=== PATIENT | female | born 1955 | race Caucasian/White ===

== ENCOUNTER → 2023-07-29 | Outpatient (CLI) | payer MEDICARE, SELFPAY ==
--- NOTE | 2023-07-29 12:53 | BD_ITS ---
STUDY: DUAL ENERGY X-RAY ABSORPTIOMETRY / DXA REASON FOR EXAM: Female, 68 years old. 627.8Menopausal postmenopausal BONE DENSITY REASON FOR EXAM TECHNIQUE: Bone Mineral Density (BMD) measurements of lumbar spine and bilateral hips were obtained. COMPARISON: None. FINDINGS: Lumbar Spine (L1-L4): g/cm2 (0.931) / T-score (-1.1) / Z-score (1.0) Findings are suggestive of osteopenia with a low fracture risk. Left Femur Total: g/cm2 (0.684) / T-score (-2.1) / Z-score (-0.6) Left Femoral Neck: g/cm2 (0.576) / T-score (-2.5) / Z-score (-0.7) Right Femur Total: g/cm2 (0.657) / T-score (-2.3) / Z-score (-0.9) Right Femoral Neck: g/cm2 (0.651) / T-score (-1.8) / Z-score (0.0) BD/Dexa Bone Density Study IMPRESSION: The patient is considered osteopenic as outlined below according to World Joshua Organization (WHO) criteria with a high fracture risk. Reference Information: The T-score is the number of standard deviations above or below the standard which is normal for young adults at their peak bone mineral density. The World Health Organization (WHO) interprets the T-scores as follows: Above -1 Normal bone density Between -1 and -2.5 Osteopenia Equal to / or below -2.5 Osteoporosis As a practical clinical guideline, osteopenia may be graded as follows: Mild -1 through -1.5 Moderate -1.6 through -2.0 Severe -2.1 through -2.4 The Z-score is the number of standard deviations above or below age-matched controls. A Z-score of less than -1.5 would be considered abnormal. References: 1. NIH Osteoporosis and Related Bone Diseases www osteo.org 2. International Society for Clinical Densitometry www iscd.org 3. National Osteoporosis Foundation www nof.org Electronically Signed: Jay Lambert MD at 12:38 EDT ,
== END | disposition home or self-care (01) ==
PROVIDERS: PCP Family Medicine
DX: Z78.0 Asymptomatic menopausal state (principal)
CPT/HCPCS: 77080

== ENCOUNTER → 2023-09-01 | Outpatient (CLI) | payer MEDICARE, SELFPAY ==
[2023-09-01 15:18] LABS: Absolute Lymphocyte Count 3.22 X10^3/uL (0.83-4.51); Absolute Neutrophil Count 3.9 X10^3/uL (2.0-7.7); Basophil% 1.2 % (0-1); Eosinophil# 0.12 X10^3/uL; Eosinophils% 1.5 % (0-5); Hematocrit 34.6 % (37-47); Hemoglobin 11.1 g/dL (12.0-15.0); Lymphocyte # 3.22 X10^3/ul (0.83-4.51); Mean Corp Hgb Conc 32.1 g/dL (32-36); Mean Corpuscular Hgb 32.2 pg (27.0-32.0); Mean Corpuscular Volume 100.3 fL (81-99); Mean Platelet Vol. 10.1 fl (6.2-12.0); Monocyte# 0.73 X10^3/uL; Monocyte% 9.1 % (0-10); NRBC Flagged by Analyzer 0 % (0-5); Neutrophil # 3.85 X10^3/uL (2.7-7.7); Platelet Count 506 K/mm3 (150-450); RBC Distribution Width CV 13.7 % (11.6-14.6); RBC Distribution Width SD 50.2 fl (35.1-43.9); Red Blood Count 3.45 M/mm3 (4.2-5.4)
[2023-09-01 15:39] LABS: ALB/GLOB Ratio 1.3 RATIO (0.9-2.4); AST(SGOT) 18 U/L (15-37); Alanine Aminotransfer ALT/SGPT 23 U/L (13-56); Albumin, Serum 4.1 g/dL (3.2-5.0); Alkaline Phosphatase 55 U/L (45-117); Anion Gap 9 (5-15); BUN 12 mg/dL (7-18); BUN/Creat Ratio 18.9 RATIO (10-20); Calcium,Total 8.5 mg/dL (8.5-10.1); Chloride 106 mmol/L (98-107); Cholesterol 149 mg/dL (200); Creatinine, Serum 0.64 mg/dL (0.55-1.02); EST Glomerular Filtration Rate 99 mL/min (>60); Est Glom Filt Rate - Afr Amer 119 mL/min (>60); Ferritin 233 ng/mL (8-252); Globulin 3.2 g/dL (2.2-4.2); Glucose 95 mg/dL (74-106); High Density Lipoprotein 83 mg/dL; Iron 108 ug/dL (50-170); Potassium 3.7 mmol/L (3.5-5.1); Protein, Total 7.3 g/dL (6.4-8.2); Sodium Level 141 mmol/L (136-145); T4 Free Direct 1.36 ng/dL (0.76-1.46); Thyroid Stim Hormone (TSH) 0.61 uIU/mL (0.358-3.74); Triglycerides 49 mg/dL; Very Low Density Lipoprotein 10 mg/dL (5-40)
== END | disposition home or self-care (01) ==
LOC: MTLAB 13:35
PROVIDERS: PCP Nurse Practitioner Family; Referring Provider Nurse Practitioner Family; Visit Provider Nurse Practitioner Family
DX: D50.9 Iron deficiency anemia, unspecified (principal); E03.9 Hypothyroidism, unspecified; E78.5 Hyperlipidemia, unspecified; I10 Essential (primary) hypertension
CPT/HCPCS: 36415; 80053; 80061; 82728; 83540; 84439; 84443; 85025

== ENCOUNTER → 2023-09-08 | Outpatient (CLI) | payer MEDICARE, SELFPAY ==
--- NOTE | 2023-09-08 13:19 | BI_ITS ---
MAMMOGRAPHY - BILATERAL SCREENING REASON FOR EXAM: Female, 68 years old. Routine annual screening examination. PERTINENT HISTORY: Aunt with breast cancer. TECHNIQUE: Digital bilateral breast sha (3D mammographic acquisition) in the CC and MLO projections. 2-D mediolateral oblique (MLO) and craniocaudad (CC) views of both breasts were obtained. CAD: Full Field Digital Mammography with Computer Added Detection was performed. COMPARISON: Comparison is made with prior examination June 15, 2022. FINDINGS: Breast Composition: The breasts are extremely dense, which lowers the sensitivity of mammography. There are no dominant masses or suspicious calcifications. Stable small bilateral axillary lymph nodes. No other significant abnormalities are identified. There has been no significant change since the prior study. BI/SCRN MAMM (CAD)W/SHA BILAT IMPRESSION: Stable bilateral screening mammogram. Yearly follow-up mammogram recommended. (A) ASSESSMENT CATEGORY: BIRADS Category 2: Benign. A letter regarding these results will be sent to the patient by the facility within 30 days. Approximately 10% of breast cancers are not detected by mammography. A normal mammogram should not delay biopsy of a clinically suspicious abnormality. [id number] Electronically Signed: Jay Lambert MD at 12:15 EST ,
== END | disposition home or self-care (01) ==
LOC: OPBI 13:16
PROVIDERS: PCP Nurse Practitioner Family; Referring Provider Nurse Practitioner Family; Visit Provider Nurse Practitioner Family
DX: Z12.31 Encounter for screening mammogram for malignant neoplasm of breast (principal)
CPT/HCPCS: 77063; 77067

== ENCOUNTER → 2023-12-29 | Outpatient (CLI) | payer MEDICARE, SELFPAY ==
--- NOTE | 2023-12-29 14:10 | RAD_ITS ---
STUDY: X-RAY - LUMBAR SPINE REASON FOR EXAM: Female, 68 years old. Back pain and numbness in feet. TECHNIQUE: 4 view(s) of the lumbar spine were obtained. COMPARISON: None FINDINGS: Osteopenia. Reversal of the normal lordosis. No scoliosis. Normal alignment of the vertebral bodies. Diffuse lower thoracic and lumbosacral facet sclerosis. Mild anterior wedging of L3, age undetermined. Diffuse intervertebral disc space narrowing with osteophyte formation. Vascular calcification. RAD/L/S Spine Min 4 Views IMPRESSION: Osteopenia with anterior wedging of L3 and diffuse mild to moderate lumbosacral spondylosis. Electronically Signed: Braeden Laguerre MD at 15:45 EDT ,
[2023-12-29 16:24] LABS: Vitamin B12 426 pg/mL (211-911)
--- OUTSIDE RECORDS SUMMARY | 2023-12-29 21:39 | XMS RPT_ITS | CCD ---
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 Esteban Calle Primary Care Unavailjosué Garza, Dr. Peyman Mcfarland Admitting Fidencio Garza, Dr. Peyman Mcfarland Attending Fidencio Garza, Dr. Peyman Mcfarland Referring Fidencio Mathews, Dr. Esteban Calle Primary Care Unavaila don Garza, Dr. Peyman Mcfarland Admitting Fidencio Garza, Dr. Peyman Mcfarland Attending Fidencio Garza, Dr. Peyman Mcfarland Referring Esteban Tamayo Primary Care Provider ESTEBAN MATHEWS Primary Care Unavailable PEYMAN GARZA Referring Unavailable PEYMAN GARZA Attending Unavailable COOPERRIDER ISIDRO SEGAL Referring UnavailESTEBAN Krishnamurthy Primary Care Unavailable PEYMAN GARZA Attending Unavailable COOPERRIDER II, ISIDRO Fabian Attending UnavailESTEBAN Krishnamurthy Primary Care Unavailable ESTEBAN MATHEWS Primary Care Unavailable ESTEBAN MATHEWS Primary Care Unavailable COOPERRIDER II, ISIDRO Fabian Referring Unavailabl e COOPERRIDER II, ISIDRO Fabian Attending Unavailabl e PEYMAN GARZA Referring Unavailable COOPERRIDER II, ISIDRO Fabian Attending ESTEBAN [facility] Un[facility] ESTEBAN CALLE Primary [facility] Unavailable PEYMAN GARZA Referring Unavailable ESTEBAN MATHEWS Primary [facility] Unavailable [facility] Attending UnavailPEYMAN Rubio Referring Unavailable ESTEBAN MATHEWS Primary [facility] Unavailable NINA STONE Attending UnavailPEYMAN Rubio Referring Unavailable ESTEBAN MATHEWS Primary [facility] Unavailable PEYMAN GARZA Referring Unavailable PEYMAN GARZA Attending Unavailable ISIDRO STONE II Attending Unavailevangelista MATHEWS ESTEBAN CALLE [facility] Unavailable PEYMAN GARZA Referring Unavailable ESTEBAN MATHEWS Primary [facility] Unavailable PEMYAN GARZA Referring Unavailable PEYMAN GARZA Attending Unavailable Medications Current Medications Medication Drug Class(es) Dates Sig (Normalized) Sig (Original) benoxinate hydrochloride 4 mg/ml / fluorescein sodium 2.5 mg/ml ophthalmic solution (2 sources) Diagnostic Dye Start: 07-06-2022 End: 07-07-2022 fluorescein-benoxi chester 0.25-0.4 % 1 Drop (FLURESS) Completed/Discontinued Medications Medication Drug Class(es) Dates Sig (Normalized) Sig (Original) famotidine 20 mg oral tablet (13 sources) Histamine-2 Receptor Antagonist take 1 tablet by mouth twice daily famotidine (PEPCID) 20 mg tablet Take 20 mg by mouth twice daily. 0 Active Problems Active Problems Problem Classification Problem Date Documented Da te Episodic/Chronic Cataract (20 sources) Bilateral senile combined form cataracts of eyes; Translations: [Combined forms of age-related cataract, bilateral] Onset: 12-17-2014 06-06-2018 Chronic Esophageal disorders (1 source) Gastro-esophageal reflux disease without esophagitis; Translations: [Gastro-esophageal reflux disease without esophagitis] Onset: 08-13-2022 Chronic Mood disorders (1 source) Mood disorders; Translations: [Depression, unspecified] Onset: 08-13-2022 Other and unspecified benign neoplasm (1 source) Nevus of choroid; 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] Episodic Other eye disorders (15 sources) Bilateral vitreous floaters; Translations: [Other vitreous opacities, bilateral] Onset: 12-17-2014 06-16-2021 Chronic Other eye disorders (4 sources) H/O: R cataract extraction; Translations: [Cataract extraction status, right eye] Episodic Retinal detachments; defects; vascular occlusion; and retinopathy (14 sources) Degeneration of retina; Translations: [Unspecified retinal disorder] Onset: 12-17-2014 12-17-2014 Chronic Past or Other Problems Problem Classification Problem Date Documented Da te Episodic/Chronic Blindness and vision defects (20 sources) Hypermetropia; Translations: [Hypermetropia, unspecified eye] Onset: 12-17-2014 12-17-2014 Episodic Other and unspecified benign neoplasm (11 sources) Nevus of choroid of right eye; 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] Onset: 07-06-2022 Episodic Other eye disorders (11 sources) H/O: L cataract extraction; Translations: [Cataract extraction status, left eye] Onset: 08-05-2022 Episodic Residual codes; unclassified (1 source) Acquired absence of other specified parts of digestive tract; Translations: [Acquired absence of other specified parts of digestive tract] Onset: 08-13-2022 Episodic Residual codes; unclassified (1 source) Acquired absence of other organs; Translations: [Acquired absence of other organs] Onset: 08-13-2022 Episodic Residual codes; unclassified (1 source) Acquired absence of both cervix and uterus; Translations: [Acquired absence of both cervix and uterus] Onset: 07-09-2022 Episodic Results Test Name Value Interpretation Reference Range Facil ity Vital Signs Date Time Vital Sign Value Performing Clinician Faci lit 08-05-2022 14:19-0400 Diastolic blood pressure 70 mm[Hg] Peyman Garza MD Work Phone: [facility] 08-05-2022 14:19-0400 Heart rate 69 /min Peyman Garza MD Work Phone: [facility] 08-05-2022 14:19-0400 Systolic blood pressure 122 mm[Hg] Peyman Garza MD Work Phone: [facility] 07-06-2022 15:28-0400 Diastolic blood pressure 70 mm[Hg] Peyman Garza MD Work Phone: [facility] 07-06-2022 15:28-0400 Heart rate 69 /min Peyman Garza MD Work Phone: [facility] 07-06-2022 15:28-0400 Systolic blood pressure 122 mm[Hg] Peyman Garza MD Work Phone: [facility] 06-23-2022 14:12-0400 Diastolic blood pressure 70 mm[Hg] Peyman Garza MD Work Phone: [facility] 06-23-2022 14:12-0400 Heart rate 69 /min Peyman Garza MD Work Phone: [facility] 06-23-2022 14:12-0400 Systolic blood pressure 122 mm[Hg] Peyman Garza MD Work Phone: [facility] Encounters Encounter Date Encounter Type Care Provider Facility Start: 04-28-2023 End: 04-28-2023 ambulatory [facility] Facility:[facility] Start: 04-28-2023 End: 04-28-2023 Patient encounter procedure Isidro Stone OD Work Phone: Optometry Procedures Date Procedure Procedure Detail Performing Clinician Start: 11-04-2022 Computerized ophthal naresh imaging retina Isidro Stone OD Work Phone: Start: 06-23-2022 IOL BIOMETRY W/ IOL CALC OU (BOTH EYES) Peyamn Garza MD Work Phone: Start: 06-23-2022 Computerized ophthal naresh imaging retina Peyman Garza MD Work Phone: Start: 06-15-2022 Mammography Mammograph y Coordinator Start: 02-20-2021 Colonoscopy Screen Wst r Start: 01-01-2020 Mammography Screen Wst r Plan of Treatment Date Care Activity Detail Author Start: 02-20-2031 Colonoscopy COLONOSCOPY [facility] Start: 02-20-2031 COLORECTAL CANCER SCREENING COLORECTAL CANCER SCREENING [facility] Start: 06-18-2023 Influenza vaccination INFLUENZA (#1) [facility] Start: 06-15-2023 Mammography MAMMOGRAM [facility] Start: 10-18-2022 ADVANCE DIRECTIVE DISCUSSION ADVANCE DIRECTIVE DISCUSSION [facility] Start: 10-18-2022 DEPRESSION ASSESSMENT DEPRESSION ASS ESSMENT [facility] Start: 06-18-2022 Influenza vaccination INFLUENZA (#1) [facility] Start: 01-01-2022 COVID-19 VACCINE (4 - Booster for Pfizer series) COVID-19 VACCINE (4 - Booster for Pfizer series) [facility] Start: 11-07-2021 LIPID SCREEN LIPID SCREEN [facility] Start: 10-29-2021 COVID-19 VACCINE (4 - Booster for Pfizer series) COVID-19 VACCINE (4 - Booster for Pfizer series) [facility] Start: 10-29-2021 COVID-19 VACCINE (4 - Pfizer series) COVID-19 VACCINE (4 - Pfizer series) [facility] Start: 10-18-2021 ADVANCE DIRECTIVE DISCUSSION ADVANCE DIRECTIVE DISCUSSION [facility] Start: 10-18-2021 DEPRESSION ASSESSMENT DEPRESSION ASS ESSMENT [facility] Start: 12-31-2020 Mammography MAMMOGRAM [facility] Start: 2019 PNEUMOCOCCAL: 65+ (1 - PCV) PNEUMOCOCCAL: 65+ (1 - PCV) [facility] Start: 09-14-2017 DIABETES SCREEN DIABETES SCREEN [facility] Start: 02-16-2007 FECAL OCCULT BLOOD FECAL OCCULT BLOO D [facility] Start: 02-02-2004 Influenza vaccination LUNG CANCER [facility] Start: 02-02-2004 SHINGRIX VACCINE (1 of 2) SHINGRIX V ACCINE (1 of 2) [facility] Start: 1999 COLOGUARD (FIT-DNA) COLOGUARD (FIT-D NA) [facility] Start: [address] COLONOGRAPHY [facility] Start: 1999 SIGMOIDOSCOPY SIGMOIDOSCOPY [facility] Start: 1973 Urine microalbumin profile DTAP,TDAP ,TD (1 - Tdap) [facility] Start: 02-02-1972 HEPATITIS C SCREENING HEPATITIS C [facility] Start: 1966 [facility] DEPRESSION SCREENING [facility] [place] Payers Date Payer Category Payer Unknown [id number] 2018 Unknown 1955 Unknown [id number] 1955 Unknown [id number] Social History Date Type Detail Facility Start: 02-20-2016 End: 06-18-2022 Tobacco smoking status NHIS Ex-smoker [facility] End: 07-03-2015 History of tobacco use Current smoker [facility] End: 07-03-2015 History of tobacco use Cigarette Smoker [facility] Start: 02-20-2016 End: 04-28-2023 Cigarettes smoked current (pack per day) - Reported 0.8 [facility] Start: 02-20-2016 End: 06-18-2022 Tobacco use and exposure Smokeless tobacco non-user [facility] Start: 06-16-2021 End: 04-28-2023 Alcohol intake Current non-drinker of alcohol (finding) [facility] Start: 1955 Sex Assigned At Female C [facility] Start: 05-29-2022 End: 09-08-2022 Exposure to SARS-CoV-2 (event) Not sure [facility] Start: 11-04-2022 End: 04-28-2023 Tobacco use panel [facility] National Score (1-10 0), lower number is lower risk 79 [facility] Start: 01-25-2021 Gender identity Identifies as female gender (finding) [facility] Start: 01-25-2021 Sexual orientation Heterosexual (fin ding) [facility] Clinical Notes 02-20-2021 to 04-28-2023 Patient InstructionsCoIsidro whittaker II, OD - 04/28/2023 2:20 PM EDTPatient InstructionsIsidro Stone II OD - 11/04/2022 2:26 PM ESTPatient InstructionsPatient InstructionsPatient Instructions Note Date & Type Note Facility 04-28-2023 Note HNO ID: [id number] Author: Isidro Stone II, OD Service: ? Author Type: IMMUNOLOGIST Type: Progress Notes Filed: 04/28/2023 2:21 PM Note Text: Assessment and Plan H26.491 PCO (posterior capsular opacification), right (primary encounter diagnosis) Comment: No progression noted. Monitor yearly or sooner if changes noted. Z96.1 Pseudophakia of both eyes Comment: Well positioned both eyes. Monitor. 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 Retinas flat and intact with no apparent retinal tear or traction. Monitor yearly. I have confirmed and edited as necessary the relevant ophthalmic history, ROS, and the neuro exam findings as obtained by others. I have seen and examined Lexii Peralta. I have discussed the case and the management of this patient's care with the Resident/Fellow, if applicable. I also have reviewed and agree with the assessment and plan as stated above and agree with all of its relevant components. Isdiro Stone II, OD [facility] 04-28-2023 Instructions Isidro Stone II, OD - 04/28/2023 2:21 PM EDT Assessment and Plan H26.491 PCO (posterior capsular opacification), right (primary encounter diagnosis) Comment: No progression noted. Monitor yearly or sooner if changes noted. Z96.1 Pseudophakia of both eyes Comment: Well positioned both eyes. Monitor. 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 Retinas flat and intact with no apparent retinal tear or traction. Monitor yearly. I have confirmed and edited as necessary the relevant ophthalmic history, ROS, and the neuro exam findings as obtained by others. I have seen and examined Lexii Peralta. I have discussed the case and the management of this patient's care with the Resident/Fellow, if applicable. I also have reviewed and agree with the assessment and plan as stated above and agree with all of its relevant components. Isidro Stone II, OD documented in this encounter [facility] 04-28-2023 History of Present illness Narrative Assessment and Plan H26.491 PCO (posterior capsular opacification), right (primary encounter diagnosis) Comment: No progression noted. Monitor yearly or sooner if changes noted. Z96.1 Pseudophakia of both eyes Comment: Well positioned both eyes. Monitor. 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 Retinas flat and intact with no apparent retinal tear or traction. Monitor yearly. I have confirmed and edited as necessary the relevant ophthalmic history, ROS, and the neuro exam findings as obtained by others. I have seen and examined Lexii Peralta. I have discussed the case and the management of this patient's care with the Resident/Fellow, if applicable. I also have reviewed and agree with the assessment and plan as stated above and agree with all of its relevant components. Isidro Stone II, OD documented in this encounter [facility] 11-04-2022 Note HNO ID: [id number] Author: Isidro Stone II, NICOLE Service: ? Author Type: IMMUNOLOGIST Type: Progress Notes Filed: 11/04/2022 2:28 PM Note Text: Assessment and Plan Z98.41, Z96.1 Status post cataract extraction and insertion of intraocular lens of right eye (primary encounter diagnosis) Z98.42, Z96.1 Status post cataract extraction and insertion of intraocular lens of left eye Comment: Posterior chamber intraocular lenses are well positioned. Retinas stable. H26.491 PCO (posterior capsular opacification), right Comment: Mild effect on vision. Patient asymptomatic until today's testing. Monitor for progression in 6 months or sooner as needed. I have confirmed and edited as necessary the relevant ophthalmic history, ROS, and the neuro exam findings as obtained by others. I have seen and examined Lexii Peralta. I have discussed the case and the management of this patient's care with the Resident/Fellow, if applicable. I also have reviewed and agree with the assessment and plan as stated above and agree with all of its relevant components. Isidro Stone II, OD [facility] 11-04-2022 Instructions Isidro Stone II, OD - 11/04/2022 2:27 PM EST Assessment and Plan Z98.41, Z96.1 Status post cataract extraction and insertion of intraocular lens of right eye (primary encounter diagnosis) Z98.42, Z96.1 Status post cataract extraction and insertion of intraocular lens of left eye Comment: Posterior chamber intraocular lenses are well positioned. Retinas stable. H26.491 PCO (posterior capsular opacification), right Comment: Mild effect on vision. Patient asymptomatic until today's testing. Monitor for progression in 6 months or sooner as needed. I have confirmed and edited as necessary the relevant ophthalmic history, ROS, and the neuro exam findings as obtained by others. I have seen and examined Lexii Peralta. I have discussed the case and the management of this patient's care with the Resident/Fellow, if applicable. I also have reviewed and agree with the assessment and plan as stated above and agree with all of its relevant components. Isidro Stone II, OD documented in this encounter [facility] 11-04-2022 History of Present illness Narrative Assessment and Plan Z98.41, Z96.1 Status post cataract extraction and insertion of intraocular lens of right eye (primary encounter diagnosis) Z98.42, Z96.1 Status post cataract extraction and insertion of intraocular lens of left eye Comment: Posterior chamber intraocular lenses are well positioned. Retinas stable. H26.491 PCO (posterior capsular opacification), right Comment: Mild effect on vision. Patient asymptomatic until today's testing. Monitor for progression in 6 months or sooner as needed. I have confirmed and edited as necessary the relevant ophthalmic history, ROS, and the neuro exam findings as obtained by others. I have seen and examined Lexii Peralta. I have discussed the case and the management of this patient's care with the Resident/Fellow, if applicable. I also have reviewed and agree with the assessment and plan as stated above and agree with all of its relevant components. Isidro Stone II, OD documented in this encounter [facility] 09-08-2022 Note HNO ID: [id number] Author: Isidro Stone II, NICOLE Service: ? Author Type: IMMUNOLOGIST Type: Progress Notes Filed: 09/08/2022 2:12 PM Note Text: Assessment and Plan Z98.41, Z96.1 Status post cataract extraction and insertion of intraocular lens of right eye (primary encounter diagnosis) Z98.42, Z96.1 Status post cataract extraction and insertion of intraocular lens of left eye Comment: Healing well. Update glasses to maximize visual performance. Continue schedule of postoperative medications as directed. Recheck in 2 months. Instruct patient to immediately report any change in condition outside of expected and discussed symptoms. I have confirmed and edited as necessary the relevant ophthalmic history, ROS, and the neuro exam findings as obtained by others. I have seen and examined Lexii Peralta. I have discussed the case and the management of this patient's care with the Resident/Fellow, if applicable. I also have reviewed and agree with the assessment and plan as stated above and agree with all of its relevant components. Isidro Stone II, NICOLE [facility] 09-08-2022 Instructions Isidro Stone II, OD - 09/08/2022 2:12 PM EST Assessment and Plan Z98.41, Z96.1 Status post cataract extraction and insertion of intraocular lens of right eye (primary encounter diagnosis) Z98.42, Z96.1 Status post cataract extraction and insertion of intraocular lens of left eye Comment: Healing well. Update glasses to maximize visual performance. Continue schedule of postoperative medications as directed. Recheck in 2 months. Instruct patient to immediately report any change in condition outside of expected and discussed symptoms. I have confirmed and edited as necessary the relevant ophthalmic history, ROS, and the neuro exam findings as obtained by others. I have seen and examined Lexii Peralta. I have discussed the case and the management of this patient's care with the Resident/Fellow, if applicable. I also have reviewed and agree with the assessment and plan as stated above and agree with all of its relevant components. Isidro Stone II, OD documented in this encounter [facility] 09-08-2022 History of Present illness Narrative Assessment and Plan Z98.41, Z96.1 Status post cataract extraction and insertion of intraocular lens of right eye (primary encounter diagnosis) Z98.42, Z96.1 Status post cataract extraction and insertion of intraocular lens of left eye Comment: Healing well. Update glasses to maximize visual performance. Continue schedule of postoperative medications as directed. Recheck in 2 months. Instruct patient to immediately report any change in condition outside of expected and discussed symptoms. I have confirmed and edited as necessary the relevant ophthalmic history, ROS, and the neuro exam findings as obtained by others. I have seen and examined Lexiiesme Peralta. I have discussed the case and the management of this patient's care with the Resident/Fellow, if applicable. I also have reviewed and agree with the assessment and plan as stated above and agree with all of its relevant components. Isidro Stone II, OD documented in this encounter [facility] 08-20-2022 Note HNO ID: [id number] Author: Isidro Stone II, OD Service: ? Author Type: IMMUNOLOGIST Type: Progress Notes Filed: 08/20/2022 8:23 AM Note Text: Assessment and Plan Z98.41, Z96.1 Status post cataract extraction and insertion of intraocular lens of right eye (primary encounter diagnosis) Z98.42, Z96.1 Status post cataract extraction and insertion of intraocular lens of left eye Comment: Healing well both eyes. Posterior chamber intraocular lenses are well positioned and clear. Continue schedule of postoperative medications as directed. Recheck refraction at next visit before pseudophakic spectacles obtained. Recheck in 3 weeks. Instruct patient to immediately report any change in condition outside of expected and discussed symptoms. I have confirmed and edited as necessary the relevant ophthalmic history, ROS, and the neuro exam findings as obtained by others. I have seen and examined Lexii Peralta. I have discussed the case and the management of this patient's care with the Resident/Fellow, if applicable. I also have reviewed and agree with the assessment and plan as stated above and agree with all of its relevant components. Isidro Stone II, NICOLE [facility] 08-20-2022 Instructions Isidro Stone II, OD - 08/20/2022 8:23 AM EDT Assessment and Plan Z98.41, Z96.1 Status post cataract extraction and insertion of intraocular lens of right eye (primary encounter diagnosis) Z98.42, Z96.1 Status post cataract extraction and insertion of intraocular lens of left eye Comment: Healing well both eyes. Posterior chamber intraocular lenses are well positioned and clear. Continue schedule of postoperative medications as directed. Recheck refraction at next visit before pseudophakic spectacles obtained. Recheck in 3 weeks. Instruct patient to immediately report any change in condition outside of expected and discussed symptoms. I have confirmed and edited as necessary the relevant ophthalmic history, ROS, and the neuro exam findings as obtained by others. I have seen and examined Lexiiesme Peralta. I have discussed the case and the management of this patient's care with the Resident/Fellow, if applicable. I also have reviewed and agree with the assessment and plan as stated above and agree with all of its relevant components. Isidro Stone II, OD documented in this encounter [facility] 08-20-2022 History of Present illness Narrative Assessment and Plan Z98.41, Z96.1 Status post cataract extraction and insertion of intraocular lens of right eye (primary encounter diagnosis) Z98.42, Z96.1 Status post cataract extraction and insertion of intraocular lens of left eye Comment: Healing well both eyes. Posterior chamber intraocular lenses are well positioned and clear. Continue schedule of postoperative medications as directed. Recheck refraction at next visit before pseudophakic spectacles obtained. Recheck in 3 weeks. Instruct patient to immediately report any change in condition outside of expected and discussed symptoms. I have confirmed and edited as necessary the relevant ophthalmic history, ROS, and the neuro exam findings as obtained by others. I have seen and examined Lexii L Willa. I have discussed the case and the management of this patient's care with the Resident/Fellow, if applicable. I also have reviewed and agree with the assessment and plan as stated above and agree with all of its relevant components. Isidro Stone II, OD documented in this encounter [facility] [facility] 08-14-2022 Note HNO ID: [id number] Author: Nina Stone OD Service: ? Author Type: IMMUNOLOGIST Type: Progress Notes Filed: 08/14/2022 3:45 PM Note Text: ASSESSMENT/PLAN: 1. Status post cataract extraction and insertion of intraocular lens of right eye - ICD9: V45.61, V43.1, ICD10: Z98.41, Z96.1 Current Ophthalmic Meds propylene glycol (SYSTANE COMPLETE OPHTHALMIC) Use 1 Drop in both eyes up to four times a day . keTORolac (ACULAR) 0.5 % ophthalmic solution Use 1 Drop in the right eye four times daily. prednisoLONE acetate (PRED FORTE, ECONOPRED PLUS) 1 % ophthalmic suspension Use 1 Drop in the right eye four times daily. Return to Dr. Isidro Stone for continued PO and care. Nina Stone, OD I have confirmed and edited as necessary the relevant ophthalmic history, ROS, and the neuro exam findings as obtained by others. I have seen and examined this patient. [facility] 08-14-2022 Instructions Nina Stone, OD - 08/14/2022 3:42 PM EDT ASSESSMENT/PLAN: 1. Status post cataract extraction and insertion of intraocular lens of right eye - ICD9: V45.61, V43.1, ICD10: Z98.41, Z96.1 Current Ophthalmic Meds propylene glycol (SYSTANE COMPLETE OPHTHALMIC) Use 1 Drop in both eyes up to four times a day . keTORolac (ACULAR) 0.5 % ophthalmic solution Use 1 Drop in the right eye four times daily. prednisoLONE acetate (PRED FORTE, ECONOPRED PLUS) 1 % ophthalmic suspension Use 1 Drop in the right eye four times daily. Return to Dr. Isidro Stone for continued PO and care. documented in this encounter [facility] 08-14-2022 History of Present illness Narrative ASSESSMENT/PLAN: 1. Status post cataract extraction and insertion of intraocular lens of right eye - ICD9: V45.61, V43.1, ICD10: Z98.41, Z96.1 Current Ophthalmic Meds propylene glycol (SYSTANE COMPLETE OPHTHALMIC) Use 1 Drop in both eyes up to four times a day . keTORolac (ACULAR) 0.5 % ophthalmic solution Use 1 Drop in the right eye four times daily. prednisoLONE acetate (PRED FORTE, ECONOPRED PLUS) 1 % ophthalmic suspension Use 1 Drop in the right eye four times daily. Return to Dr. Isidro Stone for continued PO and care. Nina Stone, OD I have confirmed and edited as necessary the relevant ophthalmic history, ROS, and the neuro exam findings as obtained by others. I have seen and examined this patient. documented in this encounter [facility] 08-13-2022 Note Post Operative Note: Post-Procedure Diagnosis: 1. Combined Form Age Related Cataract Right Eye Procedure: 1. Cataract Extraction with Intraocular lens Implant Right Eye Surgeon: Peyman Garza MD Resident/Fellow/Other Plastic Surgery Assistant: None Estimated Blood Loss (mL): none Specimen: no Findings: 1. Combined Form Age Related Cataract Right Eye Operative Report Dictated: Dictation: not applicable - note contains Operative Report Operative Report: The patient was correctly identified and the patient's operative eye was marked with a marking pen and verified with the patient in the pre-operative area. The operative eye was dilated in the preoperative area. The patient was then taken to the operating room where timeout was performed before starting the procedure. Combined anesthesia with intravenous sedation and topical tetracaine eyedrops were instilled into the right eye. The operative eye was prepped and draped in the standard sterile ophthalmic fashion in preparation for ophthalmic surgery. A Joy wire speculum was then inserted between the eyelids of the right eye and the operating microscope was placed over the right eye. A paracentesis incision was made approximately 30 away from the planned surgical incision site with the help of MVR blade. 1% lidocaine MPF with Phenylephrine 1.5% PF was injected into the anterior chamber through the paracentesis incision. A near limbal clear corneal incision was fashioned in the temporal quadrant just outside the vascular arcade and Viscoat was injected into anterior chamber to firm the eye. A bent needle cystotome was used and Utrata forceps were utilized to create a continuous curvilinear capsulorrhexis. BSS was injected beneath the anterior capsule to hydrodissect the nucleus from adjacent cortex and capsule. The residual cortex was then aspirated with irrigation/aspiration handpiece. The posterior capsule was then polished with the help of soft irrigation-aspiration tip. Provisc viscoelastic was then injected into the eye to reform the anterior chamber and to open the capsular bag. The intraocular lens implant was taken from its sterile wrapping, inspected under the surgical microscope and found to be in good condition. The intraocular lens implant 23.5D was injected into the capsule bag. The Provisc was then aspirated from the anterior chamber and from behind the intraocular lens implant. The anterior chamber was inflated with the help of BSS to moderate tension. And the edges of the surgical incision were then hydrated with the help of BSS. Vigamox was then injected into the anterior chamber and into the capsule bag through the paracentesis incision. The surgical wound was then inspected and found to be watertight. The wire speculum and drapes were then removed. Pred Forte eyedrops, Acular eyedrops and Betadine 5% sterile ophthalmic solution were instilled in the conjunctival sac. The patient tolerated the procedure well and was taken to recovery room in stable condition. Attestation: Note Completion: Attending AttestationI performed the procedure without a resident Electronic Signatures: Peyman Garza) (Signed 13-Aug-2022 14:26) Authored: Post Operative Note, Note Completion Last Updated: 13-Aug-2022 14:26 by Peyman Garza) [facility] 08-13-2022 Note History & Physical R eviewed: I have reviewed the History and Physical dated: 05-Aug-2022 History and Physical reviewed and relevant findings noted. Patient examined to review pertinent physical findings.: No significant changes Home Medications Reviewed: no changes noted Allergies Reviewed: no changes noted ERAS (Enhanced Recovery After Surgery): ERAS Patient: no Consent: COVID-19 Consent: COVID-19 Risk ConsentSurgeon has reviewed pham risks related to the risk of cara COVID-19 and if they contract COVID-19 what the risks are. Electronic Signatures: Peyman Garza) (Signed 13-Aug-2022 12:24) Authored: History & Physical Reviewed, ERAS, Consent, Note Completion Last Updated: 13-Aug-2022 12:24 by Peyman Garza) [facility] 08-05-2022 Note HNO ID: [id number] Author: Peyman Garza MD Service: ? Author Type: Physician Type: Progress Notes Filed: 08/05/2022 2:31 PM Note Text: ASSESSMENT/PLAN: 1. Combined forms of age-related cataract of right eye - ICD9: 366.19, ICD10: H25.811 (primary diagnosis) Cataract Presurgical Documentation Cataract: Right eye (OD) Current Visual Acuity Right Eye Distance CC 20/50 Left Eye Distance SC 20/25 Visual Function: Lexii Peralta states that the decline in vision from the cataract impedes her abilities as listed in the HPI, as well as other activities of daily living. Lexii Peralta has confirmed that she is no longer able to function adequately on a day-to-day basis because of her current visual condition. Further, it is my medical opinion that the cataract is the primary cause, or at least a significantly contributory cause of her visual dysfunction. With uncomplicated cataract surgery and lens implantation, it is my expectation that her visual function and quality of life will improve, significantly. The risks, benefits, alternatives, personnel and complications of cataract surgery with lens implantation were discussed with Lexii Peralta in detail. she appeared to understand and asked that I proceed with plans for surgery. PHYSICAL EXAM: Vital Signs: Blood pressure 122/70, pulse 69. Respiratory: Normal breath sounds, no wheezing. CARD: Normal heart sounds 1 AND 2, normal sinus rhythm. Patient wishes to have traditional cataract surgery with basic Intraocular lens - Right eye on 08/13/2022 at [facility]. Patient wishes to have cataract surgery with the option stated above. Patient understands that an intraocular lens implant does not necessarily replace the need for glasses. Patient understands that it is impossible for the surgeon to inform him/her of every possible complication that may occur. The surgeon has answered all of the patient's questions. Patient understands that if he/she has a mature or dense cataract, pseudoexfoliation cataract, or history of use of Flomax, he/she may require the use of Maluyugin Ring and/or Vision Blue during surgery. Patient understands the risks, benefits, and alternatives to surgery. Continue: Current Ophthalmic Meds fluorometholone (FML LIQUID FILM) 0.1 % ophthalmic suspension Use 1 Drop in the right eye three times daily. Systane Complete Artificial Tears - Use 1 Drop into both eyes three times a day. 2. 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 Status post cataract extraction and insertion of intraocular lens of left eye - ICD9: V45.61, V43.1, ICD10: Z98.42, Z96.1 Intraocular lens in good position, Left eye Continue: Current Ophthalmic Meds keTORolac (ACULAR) 0.5 % ophthalmic solution Use 1 Drop in the left eye three times daily. prednisoLONE acetate (PRED FORTE, ECONOPRED PLUS) 1 % ophthalmic suspension Use 1 Drop in the left eye three times daily. Systane Complete Artificial Tears - Use 1 Drop into both eyes three times a day. I have confirmed and edited as necessary the relevant ophthalmic history, review of systems, surgical history, and ophthalmological examination findings as obtained by the ophthalmic technical staff. I have seen and examined Lexii Peralta. I have discussed the examination findings, diagnosis, and treatment options with Lexii Peralta and/or her family. I have also reviewed and agree with the assessment and plan as stated above and agree with all its relevant components. I gave the patient the opportunity to ask questions about the findings, diagnosis, and treatment options. Peyman Garza MD [facility] 08-05-2022 Instructions Peyman Garza MD - 08/05/2022 2:28 PM EDT Continue: Current Ophthalmic Meds propylene glycol (SYSTANE COMPLETE OPHTHALMIC) fluorometholone (FML LIQUID FILM) 0.1 % ophthalmic suspension Use 1 Drop in the right eye three times daily. keTORolac (ACULAR) 0.5 % ophthalmic solution Use 1 Drop in the left eye three times daily. prednisoLONE acetate (PRED FORTE, ECONOPRED PLUS) 1 % ophthalmic suspension Use 1 Drop in the left eye three times daily. Systane Complete Artificial Tears - Use 1 Drop into both eyes three times a day. If you have any questions please contact our office at [phone]. After office hours or on the weekend, please call Dr. Garza on his cell phone at [phone]. documented in this encounter [facility] 08-05-2022 History of Present illness Narrative ASSESSMENT/PLAN: 1. Combined forms of age-related cataract of right eye - ICD9: 366.19, ICD10: H25.811 (primary diagnosis) Cataract Presurgical Documentation Cataract: Right eye (OD) Current Visual Acuity Right Eye Distance CC 20/50 Left Eye Distance SC 20/25 Visual Function: Lexii Peralta states that the decline in vision from the cataract impedes her abilities as listed in the HPI, as well as other activities of daily living. Lexii Peralta has confirmed that she is no longer able to function adequately on a day-to-day basis because of her current visual condition. Further, it is my medical opinion that the cataract is the primary cause, or at least a significantly contributory cause of her visual dysfunction. With uncomplicated cataract surgery and lens implantation, it is my expectation that her visual function and quality of life will improve, significantly. The risks, benefits, alternatives, personnel and complications of cataract surgery with lens implantation were discussed with Lexii Peralta in detail. she appeared to understand and asked that I proceed with plans for surgery. PHYSICAL EXAM: Vital Signs: Blood pressure 122/70, pulse 69. Respiratory: Normal breath sounds, no wheezing. CARD: Normal heart sounds 1 & 2, normal sinus rhythm. Patient wishes to have traditional cataract surgery with basic Intraocular lens - Right eye on 08/13/2022 at [facility]. Patient wishes to have cataract surgery with the option stated above. Patient understands that an intraocular lens implant does not necessarily replace the need for glasses. Patient understands that it is impossible for the surgeon to inform him/her of every possible complication that may occur. The surgeon has answered all of the patient's questions. Patient understands that if he/she has a mature or dense cataract, pseudoexfoliation cataract, or history of use of Flomax, he/she may require the use of Maluyugin Ring and/or Vision Blue during surgery. Patient understands the risks, benefits, and alternatives to surgery. Continue: Current Ophthalmic Meds fluorometholone (FML LIQUID FILM) 0.1 % ophthalmic suspension Use 1 Drop in the right eye three times daily. Systane Complete Artificial Tears - Use 1 Drop into both eyes three times a day. 2. 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 Status post cataract extraction and insertion of intraocular lens of left eye - ICD9: V45.61, V43.1, ICD10: Z98.42, Z96.1 Intraocular lens in good position, Left eye Continue: Current Ophthalmic Meds keTORolac (ACULAR) 0.5 % ophthalmic solution Use 1 Drop in the left eye three times daily. prednisoLONE acetate (PRED FORTE, ECONOPRED PLUS) 1 % ophthalmic suspension Use 1 Drop in the left eye three times daily. Systane Complete Artificial Tears - Use 1 Drop into both eyes three times a day. I have confirmed and edited as necessary the relevant ophthalmic history, review of systems, surgical history, and ophthalmological examination findings as obtained by the ophthalmic technical staff. I have seen and examined Lexii Peralta. I have discussed the examination findings, diagnosis, and treatment options with Lexii Prealta and/or her family. I have also reviewed and agree with the assessment and plan as stated above and agree with all its relevant components. I gave the patient the opportunity to ask questions about the findings, diagnosis, and treatment options. Peyman Garza MD documented in this encounter [facility] 07-16-2022 Note HNO ID: [id number] Author: Isidro Stone II, OD Service: ? Author Type: IMMUNOLOGIST Type: Progress Notes Filed: 07/16/2022 12:23 PM Note Text: Assessment and Plan Z98.42, Z96.1 Status post cataract extraction and insertion of intraocular lens of left eye (primary encounter diagnosis) Comment: Healing well. Posterior chamber intraocular lens is well positioned and clear. Continue schedule of postoperative medications as directed. Recheck refraction at next visit before pseudophakic spectacles obtained. Right eye scheduled for cataract removal in 1 month. Instruct patient to immediately report any change in condition outside of expected and discussed symptoms. I have confirmed and edited as necessary the relevant ophthalmic history, ROS, and the neuro exam findings as obtained by others. I have seen and examined Lexii Peralta. I have discussed the case and the management of this patient's care with the Resident/Fellow, if applicable. I also have reviewed and agree with the assessment and plan as stated above and agree with all of its relevant components. Isidro Stone II, OD [facility] 07-10-2022 Note HNO ID: [id number] Author: Nina Stone OD Service: ? Author Type: IMMUNOLOGIST Type: Progress Notes Filed: 07/10/2022 3:16 PM Note Text: ASSESSMENT/PLAN: 1. Status post cataract extraction and insertion of intraocular lens of left eye - ICD9: V45.61, V43.1, ICD10: Z98.42, Z96.1 (primary diagnosis) Current Ophthalmic Meds keTORolac (ACULAR) 0.5 % ophthalmic solution Use 1 Drop in the left eye four times daily for 7 days then 3 times daily until 08/13/2022 prednisoLONE acetate (PRED FORTE, ECONOPRED PLUS) 1 % ophthalmic suspension Use 1 Drop in the left eye four times daily for 7 days then 3 times daily until 08/13/2022 Systane Complete 1 drop in both eyes three times daily 2. Combined form of age-related cataract, right eye - ICD9: 366.19, ICD10: H25.811 Return for consents around August 06. Return to Dr. Isidro Stone for one week post op Nina Stone, OD I have confirmed and edited as necessary the relevant ophthalmic history, ROS, and the neuro exam findings as obtained by others. [facility] 07-10-2022 Instructions Nina Stone, OD - 07/10/2022 3:13 PM EDT ASSESSMENT/PLAN: 1. Status post cataract extraction and insertion of intraocular lens of left eye - ICD9: V45.61, V43.1, ICD10: Z98.42, Z96.1 (primary diagnosis) Current Ophthalmic Meds keTORolac (ACULAR) 0.5 % ophthalmic solution Use 1 Drop in the left eye four times daily for 7 days then 3 times daily until 08/13/2022 prednisoLONE acetate (PRED FORTE, ECONOPRED PLUS) 1 % ophthalmic suspension Use 1 Drop in the left eye four times daily for 7 days then 3 times daily until 08/13/2022 Systane Complete 1 drop in both eyes three times daily 2. Combined form of age-related cataract, right eye - ICD9: 366.19, ICD10: H25.811 Return for consents around August 06. Return to Dr. Isidro Stone for one week post op documented in this encounter [facility] 07-10-2022 History of Present illness Narrative ASSESSMENT/PLAN: 1. Status post cataract extraction and insertion of intraocular lens of left eye - ICD9: V45.61, V43.1, ICD10: Z98.42, Z96.1 (primary diagnosis) Current Ophthalmic Meds keTORolac (ACULAR) 0.5 % ophthalmic solution Use 1 Drop in the left eye four times daily for 7 days then 3 times daily until 08/13/2022 prednisoLONE acetate (PRED FORTE, ECONOPRED PLUS) 1 % ophthalmic suspension Use 1 Drop in the left eye four times daily for 7 days then 3 times daily until 08/13/2022 Systane Complete 1 drop in both eyes three times daily 2. Combined form of age-related cataract, right eye - ICD9: 366.19, ICD10: H25.811 Return for consents around August 06. Return to Dr. Isidro Stone for one week post op Nina Stone, NICOLE I have confirmed and edited as necessary the relevant ophthalmic history, ROS, and the neuro exam findings as obtained by others. documented in this encounter [facility] 07-09-2022 Note Post Operative Note: Post-Procedure Diagnosis: 1. Combined Form Age Related Cataract Left Eye Procedure: 1. Cataract Extraction with Intraocular Lens Implant Left Eye Surgeon: Peyman Garza MD Resident/Fellow/Other Plastic Surgery Assistant: None Estimated Blood Loss (mL): none Specimen: no Findings: 1. Combined Form Age Related Cataract Left Eye Operative Report Dictated: Dictation: not applicable - note contains Operative Report Operative Report: The patient was correctly identified in the preop area and the operative eye was marked with a marking pen. The operative eye was dilated in the preoperative area. The patient was then taken to the operating room where timeout was performed before starting the procedure. Combined anesthesia with intravenous sedation and topical tetracaine eyedrops were given the left eye. The operative eye was prepped and draped in the standard sterile ophthalmic fashion in preparation for ophthalmic surgery. A Joy wire speculum was then inserted between the eyelids of the left eye and the operating microscope was placed over the left eye. A paracentesis incision was made approximately 30 away from the planned surgical incision site with the help of MVR blade. 1% lidocaine MPF with Phenylephrine 1.5% PF was injected into the anterior chamber through the paracentesis incision. A near limbal clear corneal incision was fashioned in the temporal quadrant just outside the vascular arcade and Viscoat was injected into anterior chamber to firm the eye. A bent needle cystotome was used and Utrata forceps were utilized to create a continuous curvilinear capsulorrhexis. BSS was injected beneath the anterior capsule to hydrodissect the nucleus from adjacent cortex and capsule. The residual cortex were then aspirated with irrigation aspiration handpiece. The posterior capsule was then polished with the help of soft irrigation-aspiration tip. Provisc viscoelastic was then injected into the eye to reform the anterior chamber and to open the capsular bag. The intraocular lens implant was taken from its sterile wrapping, inspected under the surgical microscope and found to be in good condition. The intraocular lens implant 22.5D was injected into the capsule bag. The Provisc was then aspirated from the anterior chamber and from behind the intraocular lens implant. The anterior chamber was inflated with the help of BSS to moderate tension. The edges of the surgical incision were then hydrated with the help of BSS. Vigamox was then injected into the anterior chamber and into the capsule bag through the paracentesis incision. The surgical wound was then inspected and found to be watertight. The wire speculum and drapes were then removed. Pred Forte eyedrops, Acular eyedrops and Betadine 5% sterile ophthalmic solution were instilled in the conjunctival sac. The patient tolerated the procedure well and was taken to recovery room in stable condition. Attestation: Note Completion: Attending AttestationI performed the procedure without a resident Electronic Signatures: Peyman Garza) (Signed 09-Jul-2022 09:23) Authored: Post Operative Note, Note Completion Last Updated: 09-Jul-2022 09:23 by Peyman Garza) [facility] 07-09-2022 Note History & Physical R eviewed: I have reviewed the History and Physical dated: 06-Jul-2022 History and Physical reviewed and relevant findings noted. Patient examined to review pertinent physical findings.: No significant changes Home Medications Reviewed: no changes noted Allergies Reviewed: no changes noted ERAS (Enhanced Recovery After Surgery): ERAS Patient: no Consent: COVID-19 Consent: COVID-19 Risk ConsentSurgeon has reviewed pham risks related to the risk of cara COVID-19 and if they contract COVID-19 what the risks are. Electronic Signatures: Peyman Garza) (Signed 09-Jul-2022 07:50) Authored: History & Physical Reviewed, ERAS, Consent, Note Completion Last Updated: 09-Jul-2022 07:50 by Peyman Garza) [facility] 07-06-2022 Note HNO ID: [id number] Author: Peyman Garza MD Service: ? Author Type: Physician Type: Progress Notes Filed: 07/06/2022 3:41 PM Note Text: ASSESSMENT/PLAN: 1. Combined forms of age-related cataract of left eye - ICD9: 366.19, ICD10: H25.812 (primary diagnosis) Cataract Presurgical Documentation Cataract: Left eye (OS) Current Visual Acuity Right Eye Distance CC 20/50 Left Eye Distance CC 20/60 Visual Function: Lexii Peralta states that the decline in vision from the cataract impedes her abilities as listed in the HPI, as well as other activities of daily living. Lexii Peralta has confirmed that she is no longer able to function adequately on a day-to-day basis because of her current visual condition. Further, it is my medical opinion that the cataract is the primary cause, or at least a significantly contributory cause of her visual dysfunction. With uncomplicated cataract surgery and lens implantation, it is my expectation that her visual function and quality of life will improve, significantly. The risks, benefits, alternatives, personnel and complications of cataract surgery with lens implantation were discussed with Lexii Peralta in detail. she appeared to understand and asked that I proceed with plans for surgery. PHYSICAL EXAM: Vital Signs: Blood pressure 122/70, pulse 69. Respiratory: Normal breath sounds, no wheezing. CARD: Normal heart sounds 1 AND 2, normal sinus rhythm. Patient wishes to have traditional cataract surgery with basic Intraocular lens Left eye on 07/09/2022 at [facility]. Patient wishes to have cataract surgery with the option stated above. Patient understands that an intraocular lens implant does not necessarily replace the need for glasses. Patient understands that it is impossible for the surgeon to inform him/her of every possible complication that may occur. The surgeon has answered all of the patient's questions. Patient understands that if he/she has a mature or dense cataract, pseudoexfoliation cataract, or history of use of Flomax, he/she may require the use of Maluyugin Ring and/or Vision Blue during surgery. Patient understands the risks, benefits, and alternatives to surgery. Continue: Current Ophthalmic Meds fluorometholone (FML LIQUID FILM) 0.1 % ophthalmic suspension Use 1 Drop in both eyes three times daily. Systane Complete Artificial Tears - Use 1 Drop into both eyes three times a day. 2. Combined forms of age-related cataract of right eye - ICD9: 366.19, ICD10: H25.811 Plan cataract surgery in Right eye once Left eye is stable Continue: Current Ophthalmic Meds fluorometholone (FML LIQUID FILM) 0.1 % ophthalmic suspension Use 1 Drop in both eyes three times daily. Systane Complete Artificial Tears - Use 1 Drop into both eyes three times a day. 3. 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 I have seen and examined Lexii Peralta. I have discussed the examination findings, diagnosis, and treatment options with Lexii Peralta and/or her family. I have also reviewed and agree with the assessment and plan as stated above and agree with all its relevant components. I gave the patient the opportunity to ask questions about the findings, diagnosis, and treatment options. Peyman Garza MD [facility] 07-06-2022 Instructions Peyman Garza MD - 07/06/2022 3:34 PM EDT Continue: Current Ophthalmic Meds fluorometholone (FML LIQUID FILM) 0.1 % ophthalmic suspension Use 1 Drop in both eyes three times daily. Systane Complete Artificial Tears - Use 1 Drop into both eyes three times a day. If you have any questions please contact our office at [phone]. After office hours or on the weekend, please call Dr. Gazra on his cell phone at [phone]. documented in this encounter [facility] 07-06-2022 History of Present illness Narrative ASSESSMENT/PLAN: 1. Combined forms of age-related cataract of left eye - ICD9: 366.19, ICD10: H25.812 (primary diagnosis) Cataract Presurgical Documentation Cataract: Left eye (OS) Current Visual Acuity Right Eye Distance CC 20/50 Left Eye Distance CC 20/60 Visual Function: Lexii Peralta states that the decline in vision from the cataract impedes her abilities as listed in the HPI, as well as other activities of daily living. Lexii Peralta has confirmed that she is no longer able to function adequately on a day-to-day basis because of her current visual condition. Further, it is my medical opinion that the cataract is the primary cause, or at least a significantly contributory cause of her visual dysfunction. With uncomplicated cataract surgery and lens implantation, it is my expectation that her visual function and quality of life will improve, significantly. The risks, benefits, alternatives, personnel and complications of cataract surgery with lens implantation were discussed with Lexii Peralta in detail. she appeared to understand and asked that I proceed with plans for surgery. PHYSICAL EXAM: Vital Signs: Blood pressure 122/70, pulse 69. Respiratory: Normal breath sounds, no wheezing. CARD: Normal heart sounds 1 & 2, normal sinus rhythm. Patient wishes to have traditional cataract surgery with basic Intraocular lens Left eye on 07/09/2022 at [facility]. Patient wishes to have cataract surgery with the option stated above. Patient understands that an intraocular lens implant does not necessarily replace the need for glasses. Patient understands that it is impossible for the surgeon to inform him/her of every possible complication that may occur. The surgeon has answered all of the patient's questions. Patient understands that if he/she has a mature or dense cataract, pseudoexfoliation cataract, or history of use of Flomax, he/she may require the use of Maluyugin Ring and/or Vision Blue during surgery. Patient understands the risks, benefits, and alternatives to surgery. Continue: Current Ophthalmic Meds fluorometholone (FML LIQUID FILM) 0.1 % ophthalmic suspension Use 1 Drop in both eyes three times daily. Systane Complete Artificial Tears - Use 1 Drop into both eyes three times a day. 2. Combined forms of age-related cataract of right eye - ICD9: 366.19, ICD10: H25.811 Plan cataract surgery in Right eye once Left eye is stable Continue: Current Ophthalmic Meds fluorometholone (FML LIQUID FILM) 0.1 % ophthalmic suspension Use 1 Drop in both eyes three times daily. Systane Complete Artificial Tears - Use 1 Drop into both eyes three times a day. 3. 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 I have seen and examined Lexii Peralta. I have discussed the examination findings, diagnosis, and treatment options with Lexii Peralta and/or her family. I have also reviewed and agree with the assessment and plan as stated above and agree with all its relevant components. I gave the patient the opportunity to ask questions about the findings, diagnosis, and treatment options. Peyman Garza MD documented in this encounter [facility] documented as of this encounter (statuses as of 07/10/2022) [facility]09-19-2022 History of Past illness Narrative* Problem Noted Date Resolved Date Combined form of age-related cataract, left eye 07/06/2022 07/10/2022 Change in bowel habits 02/20/2021 Epigastric pain 02/20/2021 02/20/2021 Diarrhea 02/20/2021 02/20/2021 Ovarian cyst 01/02/2013 04/06/2013 documented as of this encounter (statuses as of 08/01/2022) [facility] History of Past illness Narrative* Problem Noted Date Resolved Date Combined form of age-related cataract, left eye 07/06/2022 07/10/2022 Change in bowel habits 02/20/2021 1 Epigastric pain 02/20/2021 02/20/2021 Diarrhea 02/20/2021 02/20/2021 Ovarian cyst 01/02/2013 04/06/2013 documented as of this encounter (statuses as of 08/05/2022) [facility] History of Past illness Narrative* Problem Noted Date Resolved Date Combined form of age-related cataract, left eye 07/06/2022 07/10/2022 Change in bowel habits 02/20/2021 1 Epigastric pain 02/20/2021 02/20/2021 Diarrhea 02/20/2021 02/20/2021 Ovarian cyst 01/02/2013 04/06/2013 documented as of this encounter (statuses as of 08/14/2022) [facility] History of Past illness Narrative* Problem Noted Date Resolved Date Combined form of age-related cataract, left eye 07/06/2022 07/10/2022 Change in bowel habits 02/20/2021 1 Epigastric pain 02/20/2021 02/20/2021 Diarrhea 02/20/2021 02/20/2021 Ovarian cyst 01/02/2013 04/06/2013 documented as of this encounter (statuses as of 08/20/2022) [facility] History of Past illness Narrative* Problem Noted Date Resolved Date Combined form of age-related cataract, left eye 07/06/2022 07/10/2022 Change in bowel habits 02/20/2021 1 Epigastric pain 02/20/2021 02/20/2021 Diarrhea 02/20/2021 02/20/2021 Ovarian cyst 01/02/2013 04/06/2013 documented as of this encounter (statuses as of 09/08/2022) [address]19-2022 History of Past illness Narrative* Problem Noted Date Resolved Date Combined form of age-related cataract, left eye 07/06/2022 07/10/2022 Change in bowel habits 02/20/2021 1 Epigastric pain 02/20/2021 02/20/2021 Diarrhea 02/20/2021 02/20/2021 Ovarian cyst 01/02/2013 04/06/2013 documented as of this encounter (statuses as of 11/04/2022) [facility] History of Past illness Narrative* Problem Noted Date Diagnosed Date Resolved Date Combined form of age-related cataract, left eye 07/06/2022 07/10/2022 Change in bowel habits 02/20/202102/20 Epigastric pain 02/20/2021 02/20/2021 Diarrhea 02/20/2021 02/20/2021 Ovarian cyst 01/02/2013 04/06/2013 documented as of this encounter (statuses as of 04/29/2023) [facility]09[facility]06[facility]22 NoteHNO ID: [id number] Author: Peyman Garza MD Service: ? Author Type: Physician Type: Progress Notes Filed: 06/23/2022 3:28 PM Note Text: ASSESSMENT/PLAN: 1. Combined form of age-related cataract, left eye - ICD9: 366.19, ICD10: H25.812 (primary diagnosis) 2. Combined form of age-related cataract, right eye - ICD9: 366.19, ICD10: H25.811 Blood pressure 122/70, pulse 69. Cataract Presurgical Documentation Cataract: Both eyes (OU) Current Visual Acuity Right Eye Distance CC 20/50 Left Eye Distance CC 20/[address] Isidro Stone's examination and notes today Visual Function: Lexii Peralta states that the decline in vision from the cataract impedes her abilities as listed in the HPI, as well as other activities of daily living. Lexii Peralta has confirmed that she is no longer able to function adequately on a day-to-day basis because of her current visual condition. Further, it is my medical opinion that the cataract is the primary cause, or at least a significantly contributory cause of her visual dysfunction. With uncomplicated cataract surgery and lens implantation, it is my expectation that her visual function and quality of life will improve, significantly. The risks, benefits, alternatives, personnel and complications of cataract surgery with lens implantation were discussed with Lexii Peralta in detail. she appeared to understand and asked that I proceed with plans for surgery. Patient wishes to have traditional cataract surgery with basic Intraocular lens left eye 07/09/2022. Patient wishes to have cataract surgery with the option stated above. Patient understands that an intraocular lens implant does not necessarily replace the need for glasses. Patient understands that it is impossible for the surgeon to inform him/her of every possible complication that may occur. The surgeon has answered all of the patient's questions. Patient understands that if he/she has a mature or dense cataract, pseudoexfoliation cataract, or history of use of Flomax, he/she may require the use of Maluyugin Ring and/or Vision Blue during surgery. Patient understands the risks, benefits, and alternatives to surgery.le Current Ophthalmic Meds fluorometholone (FML LIQUID FILM) 0.1 % ophthalmic suspension Use 1 Drop in both eyes three times daily. Systane Complete Artificial Tears - Use 1 Drop into both eyes three times a day. 3. 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 I have seen and examined Lexii Peralta. I have discussed the examination findings, diagnosis, and treatment options with Lexii Peralta and/or her family. I have also reviewed and agree with the assessment and plan as stated above and agree with all its relevant components. I gave the patient the opportunity to ask questions about the findings, diagnosis, and treatment options.[facility] History of Present illness Narrative* Peyman Garza MD - 06/23/2022 2:40 PM EDT ASSESSMENT/PLAN: 1. Combined form of age-related cataract, left eye - ICD9: 366.19, ICD10: H25.812 (primary diagnosis) 2. Combined form of age-related cataract, right eye - ICD9: 366.19, ICD10: H25.811 Blood pressure 122/70, pulse 69. Cataract Presurgical Documentation Cataract: Both eyes (OU) Current Visual Acuity Right Eye Distance CC 20/50 Left Eye Distance CC 20/[address] Isidro Stone's examination and notes today Visual Function: Lexii Peralta states that the decline in vision from the cataract impedes her abilities as listed in the HPI, as well as other activities of daily living. Lexii Peralta has confirmed that she is no longer able to function adequately on a day-to-day basis because of her current visual condition. Further, it is my medical opinion that the cataract is the primary cause, or at least a significantly contributory cause of her visual dysfunction. With uncomplicated cataract surgery and lens implantation, it is my expectation that her visual function and quality of life will improve, significantly. The risks, benefits, alternatives, personnel and complications of cataract surgery with lens implantation were discussed with Lexii Peralta in detail. she appeared to understand and asked that I proceed with plans for surgery. Patient wishes to have traditional cataract surgery with basic Intraocular lens left eye 07/09/2022. Patient wishes to have cataract surgery with the option stated above. Patient understands that an intraocular lens implant does not necessarily replace the need for glasses. Patient understands thatit is impossible for the surgeon to inform him/her of every possible complication that may occur. The surgeon has answered all of the patient's questions. Patient understands that if he/she has a mature or dense cataract, pseudoexfoliation cataract, or history of use of Flomax, he/she may require the use of Maluyugin Ring and/or Vision Blue during surgery. Patient understands the risks, benefits, and alternatives to surgery.le Current Ophthalmic Meds fluorometholone (FML LIQUID FILM) 0.1 % ophthalmic suspension Use 1 Drop in both eyes three times daily. Systane Complete Artificial Tears - Use 1 Drop into both eyes three times a day. 3. 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 I have discussed the examination findings, diagnosis, andtreatment options with Lexii Peralta and/or her family. I have also reviewed and agree with the assessment and plan as stated above and agree with all its relevant components. I gave the patient the opportunity to ask questions about the findings, diagnosis, and treatment options. [facility] Inst[facility]* Patient Instructions* Peyman Garza MD - 06/23/2022 2:40 PM EDT Current Ophthalmic Meds fluorometholone (FML LIQUID FILM) 0.1 % ophthalmic suspension Use 1 Drop in both eyes three times daily. Systane Complete Artificial Tears - Use 1 Drop into both eyes three times a day. Surgery scheduled for 07/09/2022 left eye at [facility] If you have any questions please contact our office at [phone]. After office hours or on the weekend, please call Dr. Garza on his cell phone at [phone]. [facility] NoteHNO ID: [id number] Author: Isidro Stone II, OD Service: ? Author Type: IMMUNOLOGIST Type: Progress Notes Filed: 06/18/2022 10:44 AM Note Text: Assessment and Plan H25.813 Combined form of senile cataract of both eyes (primary encounter diagnosis) Comment: Cataracts interfering with activities of daily living. Even daytime driving is becoming more difficult. Medically necessary surgery recommended to improve functional vision. Risks involved with cataract surgery discussed. Appointment made for consult with Dr. Garza. 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 Retinas flat and intact with no apparent retinal tear or traction. Monitor yearly. 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 Monitor. H52.03 Hyperopia of both eyes H52.223 Regular astigmatism of both eyes H52.4 Presbyopia - Both Eyes Comment: Small shift in glasses power. Patient sees little improvement with new power. I have confirmed and edited as necessary the relevant ophthalmic history, ROS, and the neuro exam findings as obtained by others. I have seen and examined Lexii Peralta. I have discussed the case and the management of this patient's care with the Resident/Fellow, if applicable. I also have reviewed and agree with the assessment and plan as stated above and agree with all of its relevant components. Isidro Stone II, [facility] Inst[facility]* Patient Instructions* Isidro Stone II, OD - 06/18/2022 10:43 AM EDT Assessment and Plan H25.813 Combined form of senile cataract of both eyes (primary encounter diagnosis) Comment: Cataracts interfering with activities of daily living. Even daytime driving is becoming more difficult. Medically necessary surgery recommended to improve functional vision. Risks involved with cataract surgery discussed. Appointment made for consult with Dr. Garza. 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 Retinas flat and intact with no apparent retinal tear or traction. Monitor yearly. 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 Monitor. H52.03 Hyperopia of both eyes H52.223 Regular astigmatism of both eyes H52.4 Presbyopia - Both Eyes Comment: Small shift in glasses power. Patient sees little improvement with new power. I have confirmed and edited as necessary the relevant ophthalmic history, ROS, and the neuro exam findings as obtained by others. I have seen and examined Lexii Peralta. I have discussed the case and the management of this patient's care with the Resident/Fellow, if applicable. I also have reviewed and agree with the assessment and plan as stated above and agree withall of its relevant components. Isidro Stone II, OD [facility] History of Present illness Narrative* Isidro Stone II, OD - 06/18/2022 10:41 AM EDT Assessment and Plan H25.813 Combined form of senile cataract of both eyes (primary encounter diagnosis) Comment: Cataracts interfering with activities of daily living. Even daytime driving is becoming more difficult. Medically necessary surgery recommended to improve functional vision. Risks involved with cataract surgery discussed. Appointment made for consult with Dr. Garza. 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 Retinas flat and intact with no apparent retinal tear or traction. Monitor yearly. 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 Monitor. H52.03 Hyperopia of both eyes H52.223 Regular astigmatism of both eyes H52.4 Presbyopia - Both Eyes Comment: Small shift in glasses power. Patient sees little improvement with new power. I have confirmed and edited as necessary the relevant ophthalmic history, ROS, and the neuro exam findings as obtained by others. I have seen and examined Lexii Peralta. I have discussed the case and the management of this patient's care with the Resident/Fellow, if applicable. I also have reviewed and agree with the assessment and plan as stated above and agree withall of its relevant components. Isidro Stone II, OD [facility] Miscellaneous Notes* Letter - Mammography Coordinator - 06/16/2022 9:32 AM EDT June 16, 2022 PID: [id number] Lexii Su Willa [address] [place] [address] Dear Jony Willa, We are pleased to inform you that the results of your recent breast imaging exam on 06/15/2022 are normal. Your mammogram demonstrates that you have dense breast tissue, which could hide abnormalities. Dense breast tissue, in and of itself, is a relatively common condition. Therefore, this information is not provided to cause undue concern; rather, it is to raise your awareness and promote discussion with your health care provider regarding the presence of dense breast tissue in addition to other riskfactors. Early detection of cancer is very important. We also understand recommendations regarding breast cancer screening are controversial. Please discuss with your primary care provider which strategy is best for you and whether a mammogram is right for you. Your imaging studies and report will be kept on [facility] at [facility] as part of your permanent medical record and are available for your continuing care. Thank you for allowing us to help in meeting your health care needs. Sincerely, Dr. Harper Interpreting Radiologist [facility] (Normal over 40) documented in this encounter[facility]08-29-[facility]22 NoteHNO ID: [id number] Author: RT Vladimir(R) Service: ? Author Type: Technologist Type: Progress Notes Filed: 06/15/2022 1:58 PM Note Text: Radiology Service Progress Note PATIENT NAME: Lexii Peralta DATE OF SERVICE: June 15, 2022 TIME: 1:58 PM PATIENT IDENTITY VERIFICATION COMPLETED USING TWO (2) IDENTIFIERS: Name and Date of confirmed by patient verbally. FALL SCREENING: Has the patient had 2 falls in the last year or 1 fall with injury or currently using an Ambulatory Assistive Device (Walker, Cane, Wheelchair, Crutches, etc.)? No PATIENT GENDER DATA: Female. status: : No status: NO. PATIENT RELEVANT IMPLANT DATA REVIEWED: Not Applicable RADIOLOGY DEPARTMENT: Mammography PERIPHERAL IV DATA: Not applicable SIGNED BY: RT Vladimir(R) June 15, 2022 1:58 [facility] History of Present illness Narrative* RT Vladimir(R) - 06/15/2022 2:10 PM EDT Radiology Service Progress Note PATIENT NAME: Lexii Peralta DATE OF SERVICE: June 15, 2022 TIME: 1:58 PM PATIENT IDENTITY VERIFICATION COMPLETED USING TWO (2) IDENTIFIERS: Name and Date of confirmedby patient verbally. FALL SCREENING: Has the patient had 2 falls in the last year or 1 fall with injury or currently using an Ambulatory Assistive Device (Walker, Cane, Wheelchair, Crutches, etc.)? No PATIENT GENDER DATA: Female. status: : No status: NO. PATIENT RELEVANT IMPLANT DATA REVIEWED: Not Applicable RADIOLOGY DEPARTMENT: Mammography PERIPHERAL IV DATA: Not applicable SIGNED BY: RT Vladimir(R) June 15, 2022 1:58 PM documented in [facility] encounter[facility] History of Past illness Narrative* Problem Noted Date Resolved Date Change in bowel habits 02/20/2021 Epigastric pain 02/20/2021 02/20/2021 Diarrhea 02/20/2021 02/20/2021 Ovarian cyst 01/02/2013 04/06/2013 documented as of this encounter (statuses as of 06/16/2022) [facility] History of Past illness Narrative* Problem Noted Date Resolved Date Change in bowel habits 02/20/2021 1 Epigastric pain 02/20/2021 02/20/2021 Diarrhea 02/20/2021 02/20/2021 Ovarian cyst 01/02/2013 04/06/2013 documented as of this encounter (statuses as of 06/18/2022) [facility] History of Past illness Narrative* Problem Noted Date Resolved Date Change in bowel habits 02/20/2021 1 Epigastric pain 02/20/2021 02/20/2021 Diarrhea 02/20/2021 02/20/2021 Ovarian cyst 01/02/2013 04/06/2013 documented as of this encounter (statuses as of 06/18/2022) [facility] of Past illness Narrative* Problem Noted Date Resolved Date Change in bowel habits 02/20/2021 1 Epigastric pain 02/20/2021 02/20/2021 Diarrhea 02/20/2021 02/20/2021 Ovarian cyst 01/02/2013 04/06/2013 documented as of this encounter (statuses as of 06/23/2022) [facility] of Past illness Narrative* Problem Noted Date Resolved Date Change in bowel habits 02/20/2021 1 Epigastric pain 02/20/2021 02/20/2021 Diarrhea 02/20/2021 02/20/2021 Ovarian cyst 01/02/2013 04/06/2013 documented as of this encounter (statuses as of 07/06/2022) [facility] Combined form of senile cataract of both eyes- Primary Vitreous floaters, bilateral Retina degeneration - Both Eyes Peripheral retinal degeneration, unspecified Hyperopia of both eyes Regular astigmatism of both eyes Regular astigmatism Presbyopia - Both Eyes [facility] Combined form of age-related cataract, left eye- Primary Combined form of age-related cataract, right eye 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 Combined form of age-related cataract, left eye [facility] Diagnosis Combined forms of age-related cataract of left eye- Primary Other and combined forms of senile cataract Combined forms of age-related cataract of right eye Other and combined forms of senile cataract 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 Combined form of age-related cataract, left eye [facility] Status post cataract extraction and insertion of intraocular lens of left eye- Primary Combined form of age-related cataract, right eye [facility] Diagnosis Combined forms of age-related cataract of right eye- Primary Other and combined forms of senile cataract 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 Status post cataract extraction and insertion of intraocular lens of left eye Combined form of age-related cataract, right eye [facility] Diagnosis Status post cataract extraction and insertion of intraocular lens of right eye- Primary [facility] Diagnosis Status post cataract extraction and insertion of intraocular lens of right eye- Primary Status post cataract extraction and insertion of intraocular lens of left eye [facility] Diagnosis Status post cataract extraction and insertion of intraocular lens of right eye- Primary Status post cataract extraction and insertion of intraocular lens of left eye [facility] Diagnosis Status post cataract extraction and insertion of intraocular lens of right eye- Primary Status post cataract extraction and insertion of intraocular lens of left eye PCO (posterior capsular opacification), right After-cataract, unspecified [facility] PCO (posterior capsular opacification), right- Primary After-cataract, unspecified Pseudophakia of both eyes Lens replaced by other means Vitreous floaters, bilateral documented in this encounter [facility] Summary Purpose Family History No Family History Records FoundNo Family History Records FoundNo Family History Records Found Advance Directives No Advanced Directives Records FoundNo Advanced Directives Records FoundNo Advanced Directives Records Found Medications Administered Section Active Administered Medications - up to 3 most recent administrations Medication Order MAR Action Action Date Dose Rate Site PHENYLephrine 2.5 % 1 Drop (AK-DILATE, YESSICA-SYNEPHRINE) 1 Drop, BOTH EYES, DIRECTED, Starting on Wed06/18/22 at 1030, Until Wed06/18/22 at 2229, Administer for dilation PROTECT FROM LIGHT Given 06/18/2022 10:30 AM EDT 1 Drop tropicamide 0.5 % 1 Drop (MYDRIACYL) 1 Drop, BOTH EYES, DIRECTED, Starting on Wed06/18/22 at 1030, Until Wed06/18/22 at 2229, Administer for dilation Given 06/18/2022 10:30 AM EDT 1 Drop Active Administered Medications - up to 3 most recent administrations Medication Order MAR Action Action Date Dose Rate Site fluorescein-benoxinate 0.25-0.4 % 1 Drop (FLURESS) 1 Drop, BOTH EYES, DIRECTED, Starting on Wed06/23/22 at 1430, Until Wed06/24/22 at 022, Administer for applanation tonometry. In the event of a Fluress shortage, administer Jeri-Fluor 1 drop into both eyes as directed for applanation tonometry Given 06/23/2022 3:21 PM EDT 1 Drop PHENYLephrine 2.5 % 1 Drop (AK-DILATE, YESSICA-SYNEPHRINE) 1 Drop, BOTH EYES, DIRECTED, Starting on Wed06/23/22 at 1430, Until Wed06/24/22 at 0229, Administer for dilation PROTECT FROM LIGHT Given 06/23/2022 3:21 PM EDT 1 Drop proparacaine 0.5 % 1 Drop (ALCAINE) 1 Drop, BOTH EYES, DIRECTED, Starting on Wed06/23/22 at 1430, Until Wed06/24/22 at 0229, Administer for pneumo tonometry, tonopen tonometry, or pachymetry. In the event of a proparacaine shortage, administer tetracaine 0.5% ophthalmic drops 1 drop in the left eye as directed for pneumo tonometry, tonopen tonometry, or pachymetry Given 06/23/2022 3:21 PM EDT 1 Drop tropicamide 1 % 1 Drop (MYDRIACYL) 1 Drop, BOTH EYES, DIRECTED, Starting on Wed06/23/22 at 1430, Until Wed06/24/22 at 0229, Administer for dilation Given 06/23/2022 3:21 PM EDT 1 Drop Active Administered Medications - up to 3 most recent administrations Medication Order MAR Action Action Date Dose Rate Site fluorescein-benoxinate 0.25-0.4 % 1 Drop (FLURESS) 1 Drop, BOTH EYES, DIRECTED, Starting on Wed07/06/22 at 1600, Until Wed07/07/22 at 0359, Administer for applanation tonometry. In the event of a Fluress shortage, administer Jeri-Fluor 1 drop into both eyes as directed for applanation tonometry Given 07/06/2022 3:30 PM EDT 1 Drop proparacaine 0.5 % 1 Drop (ALCAINE) 1 Drop, BOTH EYES, DIRECTED, Starting on Wed07/06/22 at 1600, Until Wed07/07/22 at 0359, Administer for pneumo tonometry, tonopen tonometry, or pachymetry. In the event of a proparacaine shortage, administer tetracaine 0.5% ophthalmic drops 1 drop in the left eye as directed for pneumo tonometry, tonopen tonometry, or pachymetry Given 07/06/2022 3:30 PM EDT 1 Drop Active Administered Medications - up to 3 most recent administrations Medication Order MAR Action Action Date Dose Rate Site proparacaine 0.5 % 1 Drop (ALCAINE) 1 Drop, LEFT EYE, DIRECTED, Starting on Wed07/10/22 at 1530, Until Wed07/11/22 at 0329, Administer for pneumo tonometry, tonopen tonometry, or pachymetry. In the event of a proparacaine shortage, administer tetracaine 0.5% ophthalmic drops 1 drop in the left eye as directed for pneumo tonometry, tonopen tonometry, or pachymetry Given 07/10/2022 3:30 PM EDT 1 Drop Active Administered Medications - up to 3 most recent administrations Medication Order MAR Action Action Date Dose Rate Site proparacaine 0.5 % 1 Drop (ALCAINE) 1 Drop, BOTH EYES, DIRECTED, Starting on Wed08/05/22 at 1430, Until Wed08/06/22 at 0229, Administer for pneumo tonometry, tonopen tonometry, or pachymetry. In the event of a proparacaine shortage, administer tetracaine 0.5% ophthalmic drops 1 drop in the left eye as directed for pneumo tonometry, tonopen tonometry, or pachymetry Given 08/05/2022 2:25 PM EDT 1 Drop Active Administered Medications - up to 3 most recent administrations Medication Order MAR Action Action Date Dose Rate Site PHENYLephrine 2.5 % 1 Drop (AK-DILATE, YESSICA-SYNEPHRINE) 1 Drop, BOTH EYES, DIRECTED, Starting on Wed11/04/22 at 1430, Until Mireya 11/05/22 at 0229, Administer for dilation PROTECT FROM LIGHT Given 11/04/2022 2:30 PM EST 1 Drop tropicamide 1 % 1 Drop (MYDRIACYL) 1 Drop, BOTH EYES, DIRECTED, Starting on Wed11/04/22 at 1430, Until Mireya 11/05/22 at 0229, Administer for dilation Given 11/04/2022 2:30 PM EST 1 Drop Additional Source Comments INFORMATION SOURCE (unrecogn ized section and content) DATE CREATED AUTHOR AUTHOR'S ORGANIZ ATION 01/18/2023 [facility] DATE CREATED AUTHOR AUTHOR'S ORGANIZ ATION 04/29/2023 [facility] Source Comments (unrecognize d section and content) In the event this informatio n is protected by the Federal Confidentiality of Alcohol and Drug Abuse Patient Records regulations: The Federal rules restrict any use of the information to criminally investigate or prosecute any alcohol or drug abuse patient.[facility] the event this information is protected by the Federal Confidentiality of Alcohol and Drug Abuse Patient Records regulations: The Federal rules restrict any use of the information to criminally investigate or prosecute any alcohol or drug abuse patient.[facility] the event this information is protected by the Federal Confidentiality of Alcohol and Drug Abuse Patient Records regulations: The Federal rules restrict any use of the information to criminally investigate or prosecute any alcohol or drug abuse patient.[facility] the event this information is protected by the Federal Confidentiality of Alcohol and Drug Abuse Patient Records regulations: The Federal rules restrict any use of the information to criminally investigate or prosecute any alcohol or drug abuse patient.[facility] the event this information is protected by the Federal Confidentiality of Alcohol and Drug Abuse Patient Records regulations: The Federal rules restrict any use of the information to criminally investigate or prosecute any alcohol or drug abuse patient.[facility] the event this information is protected by the Federal Confidentiality of Alcohol and Drug Abuse Patient Records regulations: The Federal rules restrict any use of the information to criminally investigate or prosecute any alcohol or drug abuse patient.[facility] the event this information is protected by the Federal Confidentiality of Alcohol and Drug Abuse Patient Records regulations: The Federal rules restrict any use of the information to criminally investigate or prosecute any alcohol or drug abuse patient.[facility] the event this information is protected by the Federal Confidentiality of Alcohol and Drug Abuse Patient Records regulations: The Federal rules restrict any use of the information to criminally investigate or prosecute any alcohol or drug abuse patient.[facility] the event this information is protected by the Federal Confidentiality of Alcohol and Drug Abuse Patient Records regulations: The Federal rules restrict any use of the information to criminally investigate or prosecute any alcohol or drug abuse patient.[facility] the event this information is protected by the Federal Confidentiality of Alcohol and Drug Abuse Patient Records regulations: The Federal rules restrict any use of the information to criminally investigate or prosecute any alcohol or drug abuse patient.[facility] the event this information is protected by the Federal Confidentiality of Alcohol and Drug Abuse Patient Records regulations: The Federal rules restrict any use of the information to criminally investigate or prosecute any alcohol or drug abuse patient.[facility] the event this information is protected by the Federal Confidentiality of Alcohol and Drug Abuse Patient Records regulations: The Federal rules restrict any use of the information to criminally investigate or prosecute any alcohol or drug abuse patient.[facility] the event this information is protected by the Federal Confidentiality of Alcohol and Drug Abuse Patient Records regulations: The Federal rules restrict any use of the information to criminally investigate or prosecute any alcohol or drug abuse patient.[facility] Care Teams (unrecognized sec tion and content) Paint Process Engineer Relationship Specialty Start Date [place] [address] PCP - General Family Practice 01/29/21 Paint Process Engineer Relationship Specialty Start Date End Date Tomchak, Esteban Rob [address] [place] [address] PCP - General Family Practice 01/29/21 Paint Process Engineer Relationship Specialty Start Date End Date Esteban Mathews [address] [place] [address] PCP - General Family Practice 01/29/21 Paint Process Engineer Relationship Specialty Start Date End Date Esteban Mathews [address] [place] [address] PCP - General Family Practice 01/29/21 Paint Process Engineer Relationship Specialty Start Date End Date Esteban Mathews [address] [place] [address] PCP - General Family Medicine 01/29/21 Paint Process Engineer Relationship Specialty Start Date End Date Esteban Mathews [address] [place] [address] PCP - General Family Medicine 01/29/21 Paint Process Engineer Relationship Specialty Start Date End Date Esteban Mathews [address] [place] [address] PCP - General Family Medicine 01/29/21 Paint Process Engineer Relationship Specialty Start Date End Date Esteban Mathews [address] [place] [address] PCP - General Family Medicine 01/29/21 Paint Process Engineer Relationship Specialty Start Date End Date Esteban Mathews [address] [place] [address] PCP - General Family Medicine 01/29/21 Paint Process Engineer Relationship Specialty Start Date End Date Esteban Mathews [address] [place] [address] PCP - General Family Medicine 01/29/21 Paint Process Engineer Relationship Specialty Start Date End Date Esteban Mathews [address] [place] [address] PCP - General Family Medicine 01/29/21 Paint Process Engineer Relationship Specialty Start Date End Date Esteban Mathews [address] [place] [address] PCP - General Family Medicine 01/29/21 Reason for Visit (unrecogniz ed section and content) Reason Comments Blurred Vision Both Eyes Glare Difficulty Reading Both Eyes Reason Comments Blurred Vision Both Eyes Difficulty Reading Both Eyes Glare Halos Both Eyes Reason Comments Post-op Cataract OS Status Post Cataract Surgery with Intraocular lens of left eye (07-09-2022) Reason Comments Refill Request Reason Comments Blurred Vision Right Eye Difficulty Reading Right Eye Glare Right eye Halos Right Eye Reason Comments Post-op Cataract OD Status Post Cataract Surgery with Intraocular lens of right eye 08-13-2022 Post-op Cataract OS 07-09-2022 Reason Comments Post-op Cataract Right eye 08/13/22Le ft eye 07/09/22 Reason Comments Post-op Cataract Right eye 08/13/22 L eft eye 07/09/22 Reason Comments Post-op Cataract Right eye 08/13/22 L eft eye 07/09/22 Posterior Capsule Opacification Follow U p Right eye FOR RECORDS PERTAINING TO PATIENTS WHO ARE OR HAVE BEEN ENROLLED IN A CHEMICAL DEPENDENCY/SUBSTANCEABUSE PROGRAM, SOME INFORMATION MAY BE OMITTED. This clinical summary was aggregated from multiple sources. Caution should be exercised in using it in the provision of clinical care. This summary normalizes information from multiple sources, and as a consequence, information in this document may materially change the coding, format and clinical context of patient data. In addition, data may be omitted in some cases. CLINICAL DECISIONS SHOULD BE BASED ON THE PRIMARY CLINICAL RECORDS. [employer] provides no warranty or guarantee of the accuracy or completeness of information in this document.
== END | disposition home or self-care (01) ==
PROVIDERS: PCP Nurse Practitioner Family; Referring Provider Nurse Practitioner Family; Visit Provider Nurse Practitioner Family
DX: E53.8 Deficiency of other specified B group vitamins (principal); M54.50 Low back pain, unspecified; R20.0 Anesthesia of skin
CPT/HCPCS: 36415; 72110; 82607

== ENCOUNTER → 2024-09-27 | Outpatient (CLI) | payer MEDICARE, SELFPAY ==
[2024-09-27 15:25] LABS: Absolute Lymphocyte Count 2.41 X10^3/uL (0.83-4.51); Basophil# 0.09 X10^3/uL; Basophil% 1.3 % (0-1); Eosinophil# 0.06 X10^3/uL; Eosinophils% 0.8 % (0-5); Hematocrit 35.1 % (37-47); Hemoglobin 11.2 g/dL (12.0-15.0); Lymphocyte # 2.41 X10^3/ul (0.83-4.51); Mean Corp Hgb Conc 31.9 g/dL (32-36); Mean Corpuscular Volume 100.3 fL (81-99); Mean Platelet Vol. 10.5 fl (6.2-12.0); Monocyte# 0.51 X10^3/uL; Monocyte% 7.2 % (0-10); NRBC Flagged by Analyzer 0 % (0-5); Neutrophil % 56.6 % (47-70); Platelet Count 452 K/mm3 (150-450); RBC Distribution Width CV 14.1 % (11.6-14.6); RBC Distribution Width SD 51.5 fl (35.1-43.9); White Blood Count 7.1 K/mm3 (4.4-11.0)
[2024-09-27 15:46] LABS: Vitamin D,25 Hydroxy 53.5 ng/mL
[2024-09-27 15:59] LABS: ALB/GLOB Ratio 1.4 RATIO (0.9-2.4); AST(SGOT) 24 U/L (15-37); Alanine Aminotransfer ALT/SGPT 27 U/L (13-56); Albumin, Serum 4.2 g/dL (3.2-5.0); Alkaline Phosphatase 65 U/L (45-117); Anion Gap 4 (5-15); BUN 8 mg/dL (7-18); BUN/Creat Ratio 10.2 RATIO (10-20); Calcium,Total 9.3 mg/dL (8.5-10.1); Chloride 106 mmol/L (98-107); Cholesterol 241 mg/dL (200); Creatinine, Serum 0.78 mg/dL (0.55-1.02); EST Glomerular Filtration Rate 77 mL/min (>60); Est Glom Filt Rate - Afr Amer 94 mL/min (>60); Globulin 3.1 g/dL (2.2-4.2); Glucose 101 mg/dL (74-106); High Density Lipoprotein 86 mg/dL; Potassium 4.5 mmol/L (3.5-5.1); Protein, Total 7.3 g/dL (6.4-8.2); Sodium Level 140 mmol/L (136-145); Triglycerides 75 mg/dL; Very Low Density Lipoprotein 15 mg/dL (5-40)
== END | disposition home or self-care (01) ==
LOC: BFHLAB 11:50
PROVIDERS: PCP Nurse Practitioner Family; Referring Provider Nurse Practitioner Family; Visit Provider Nurse Practitioner Family
DX: E78.5 Hyperlipidemia, unspecified (principal); E03.9 Hypothyroidism, unspecified; I10 Essential (primary) hypertension; E55.9 Vitamin D deficiency, unspecified
CPT/HCPCS: 36415; 80053; 80061; 82306; 84439; 84443; 85025

== ENCOUNTER → 2024-10-19 | Outpatient (CLI) | payer MEDICARE, SELFPAY ==
--- NOTE | 2024-10-19 12:09 | BI_ITS ---
MAMMOGRAPHY - BILATERAL SCREENING 3-D TOMOSYNTHESIS REASON FOR EXAM: Female, 69 years old. Routine screening PERTINENT HISTORY: Grandmother and aunts with breast cancer.. TECHNIQUE: 2-D mammograms and 3-D Tomosynthesis of the breast (s) were performed. CAD was performed. COMPARISON: 09/08/2023 FINDINGS: The breast composition is heterogeneously dense that can obscure small breast masses. Stable scattered punctate calcifications are seen. No dense spiculated masses or suspicious microcalcifications are identified. No architectural distortion is identified. There is no skin thickening or retraction. There has been no significant change since the prior study. BI/SCRN MAMM (CAD)W/SHA BILAT IMPRESSION: No mammographic signs of malignancy. Routine yearly mammograms recommended. ASSESSMENT CATEGORY: BIRADS Category 2: Benign. A letter regarding these results will be sent to the patient by the facility within 30 days. FOLLOW UP RECOMMENDATION: Yearly follow up mammogram recommended. (A) Approximately 10% of breast cancers are not detected by mammography. A normal mammogram should not delay biopsy of a clinically suspicious abnormality. Electronically Signed: Keegan Vidales MD at 13:18 EST ,
== END | disposition home or self-care (01) ==
LOC: OPBI 12:07
PROVIDERS: PCP Nurse Practitioner Family; Referring Provider Nurse Practitioner Family; Visit Provider Nurse Practitioner Family
DX: Z12.31 Encounter for screening mammogram for malignant neoplasm of breast (principal); Z80.3 Family history of malignant neoplasm of breast
CPT/HCPCS: 77063; 77067

== ENCOUNTER → 2025-06-15 | Outpatient (CLI) | payer MEDICARE, SELFPAY ==
[2025-06-15 15:13] LABS: Hematocrit 34.9 % (37-47); Hemoglobin 11.6 g/dL (12.0-15.0); Immature Granulocytes Count 0.020 X10^3/uL (0.0-0.0); Mean Corp Hgb Conc 33.2 g/dL (32-36); Mean Corpuscular Volume 98.9 fL (81-99); Mean Platelet Vol. 10.3 fl (6.2-12.0); NRBC Flagged by Analyzer 0 % (0-5); Platelet Count 543 K/mm3 (150-450); RBC Distribution Width CV 13.2 % (11.6-14.6); RBC Distribution Width SD 48.0 fl (35.1-43.9); Red Blood Count 3.53 M/mm3 (4.2-5.4); White Blood Count 9.3 K/mm3 (4.4-11.0)
[2025-06-15 16:29] LABS: AST(SGOT) 21 U/L (<=31); Alanine Aminotransfer ALT/SGPT 12 U/L (<=34); Albumin, Serum 4.3 g/dL (3.4-4.8); Alkaline Phosphatase 67 U/L (35-104); Anion Gap 11 (5-15); BUN 7 mg/dL (4-19); BUN/Creat Ratio 10.7 RATIO (10-20); Calcium,Total 9.2 mg/dL (7.6-11.0); Carbon Dioxide 24.7 mmol/L (21.0-32.0); Chloride 103 mmol/L (98-108); Ferritin 354 ng/mL (22-378); Globulin 2.6 g/dL (2.2-4.2); Glucose 98 mg/dL (70-99); Iron 114 ug/dL (50-170); Potassium 4.2 mmol/L (3.3-5.1); Vitamin B12 725 pg/mL (180-914); Vitamin D,25 Hydroxy 97.9 ng/mL (30-100)
== END | disposition home or self-care (01) ==
LOC: MTLAB 11:56
PROVIDERS: PCP Nurse Practitioner Family; Referring Provider Nurse Practitioner Family; Visit Provider Nurse Practitioner Family
DX: E03.9 Hypothyroidism, unspecified (principal); R53.83 Other fatigue; E53.8 Deficiency of other specified B group vitamins; D50.9 Iron deficiency anemia, unspecified
CPT/HCPCS: 36415; 80053; 82306; 82607; 82728; 83540; 84439; 84443; 85025

== ENCOUNTER → 2025-10-16 | Outpatient (CLI) | payer MEDICARE, SELFPAY ==
[2025-10-16 15:06] LABS: Hematocrit 33.9 % (37-47); Hemoglobin 11.1 g/dL (12.0-15.0); Immature Granulocytes Count 0.020 X10^3/uL (0.0-0.0); Mean Corp Hgb Conc 32.7 g/dL (32-36); Mean Corpuscular Volume 99.1 fL (81-99); Mean Platelet Vol. 11.0 fl (6.2-12.0); NRBC Flagged by Analyzer 0 % (0-5); Platelet Count 440 K/mm3 (150-450); RBC Distribution Width CV 14.1 % (11.6-14.6); RBC Distribution Width SD 50.0 fl (35.1-43.9); Red Blood Count 3.42 M/mm3 (4.2-5.4); White Blood Count 6.2 K/mm3 (4.4-11.0)
[2025-10-16 15:41] LABS: AST(SGOT) 33 U/L (<=31); Alanine Aminotransfer ALT/SGPT 18 U/L (<=34); Albumin, Serum 4.4 g/dL (3.4-4.8); Alkaline Phosphatase 67 U/L (35-104); Anion Gap 12 (7-18); BUN 7 mg/dL (4-19); BUN/Creat Ratio 10.9 RATIO (10-20); Calcium,Total 9.7 mg/dL (7.6-11.0); Carbon Dioxide 25.0 mmol/L (20.0-29.0); Chloride 102 mmol/L (96-106); Cholesterol 216 mg/dL (<=200); Globulin 2.8 g/dL (2.2-4.2); Glucose 85 mg/dL (70-99); Low Density Lipoprotein Calc. 134 mg/dL; Potassium 4.1 mmol/L (3.5-5.1); Triglycerides 97 mg/dL; Very Low Density Lipoprotein 19 mg/dL (5-40); Vitamin D,25 Hydroxy 95.3 ng/mL (30-100); cholesterol:hdl ratio screen 3.33
== END | disposition home or self-care (01) ==
LOC: BFHLAB 11:38
PROVIDERS: PCP Nurse Practitioner Family; Visit Provider Nurse Practitioner Family
DX: E78.5 Hyperlipidemia, unspecified (principal); E03.9 Hypothyroidism, unspecified; I10 Essential (primary) hypertension; E55.9 Vitamin D deficiency, unspecified
CPT/HCPCS: 36415; 80053; 80061; 82306; 84439; 84443; 85025